=== PATIENT | female | born 1975 | race Caucasian/White ===

== ENCOUNTER 2017-04-10 22:57 | Inpatient (IN) | payer MEDICAID ==
[~2017-04-10] VITALS: Ht 160 cm; Wt 61.2 kg
--- NOTE | 2017-04-10 23:09 | NUR ---
PATIENT WALKED INTO ER C/O SUDDEN ONSET CP RADIATING TO LEFT ARM, PT IS ALERT, ORIENTED X 4, NO RESP DISTRESS NOTED OR REPORTED UPON ASSESSMENT... MD AT BEDSIDE..
[2017-04-10] MEDS ORDERED: ASPIRIN 325 MG TABLET ONE (23:44)
[2017-04-10] MEDS ORDERED: NITROGLYCERIN 0.4 MG/TAB BOTTLE SL ONE ×2 (23:44→23:45)
[2017-04-10] MEDS ORDERED: IV NORMAL SALINE 1000 ML BAG IV ONE (23:45)
[2017-04-10] MEDS ORDERED: ASPIRIN 325 MG TABLET PO ONE (23:45)
[2017-04-10 23:57] LABS: BASOPHILS % (AUTO) 0.4 % (0.0-2.0); EOSINOPHILS # (AUTO) 0.1 K/uL (0.0-0.7); EOSINOPHILS % (AUTO) 1.7 % (0.0-7.0); HEMATOCRIT 38.9 % (37-47); HEMOGLOBIN 12.6 G/DL (12.0-16.0); LYMPHOCYTES # (AUTO) 2.4 K/UL (0.8-4.8); LYMPHOCYTES % (AUTO) 30.3 % (20.5-51.5); MEAN CORPUSCULAR HEMOGLOBIN 26.6 UUG (27.0-31.0); MEAN CORPUSCULAR HGB CONC 33 g/dL (32.0-37.0); MEAN CORPUSCULAR VOLUME 81.8 FL (81.0-99.0); MONOCYTES # (AUTO) 0.8 K/UL (0.1-1.30); NEUTROPHILS # (AUTO) 4.8 K/UL (1.8-8.9); NEUTROPHILS % (AUTO) 57.6 % (38.5-71.5); PLATELET COUNT (AUTO) 145 K/UL (150-450); RED BLOOD CELL COUNT(AUTO) 4.75 MIL/UL (4.2-5.4); WHITE BLOOD COUNT (AUTO) 8.1 K/UL (4.0-11.2)
[2017-04-11 00:02] LABS: MAGNESIUM 1.8 mg/dL (1.8-2.4)
[2017-04-11 00:03] LABS: CREATININE 0.6 mg/dL (0.6-1.3); POTASSIUM 4.1 mmol/L (3.5-5.1)
[2017-04-11 00:20] LABS: BILIRUBIN,DIRECT 0.1 mg/dL (0.0-0.2); BILIRUBIN,TOTAL 0.3 mg/dL (0.2-1.0); TOTAL PROTEIN, SERUM 7.1 g/dL (6.4-8.2)
[2017-04-11 00:23] LABS: THYROID STIMULATING HORMONE < 0.007 mIU/mL (0.358-3.740)
[2017-04-11] MEDS ORDERED: NITROGLYCERIN OINT 1 GM PACKET TP ONE ×2 (00:36)
--- NOTE | 2017-04-11 00:55 | NUR ---
PER ERMD, CONTACTED EPIC FOR MD TO , SPRAY PILOT TO PAGE DR. Ava LYNN...
[2017-04-11 01:30] VITALS: BP 116/67
--- NOTE | 2017-04-11 01:37 | NUR ---
Pt. admitted to TELEMETRY , under care of Dr. LYNN, [place] completed, pt is alert, oriented x 4, no resp distress noted or reported upon transfer assessment... pt transferred via wheelchair...
--- NOTE | 2017-04-11 01:40 | NUR ---
ADMITTED PATIENT IN THE TELE UNIT UNDER THE CARE OF DR. CLEMENT. WAS NOTIFIED OF THE ADMISSION. ORIENT PATIENT TO THE ROOM, BATHROOM AND CALL LIGHTS.
[2017-04-11] MEDS ORDERED: ACETAMINOPHEN 325 MG TABLET PO PRN (02:30)
[2017-04-11 04:00] VITALS: BP 91/59
[2017-04-11] MEDS ORDERED: IV 1/2NS 1000 ML 1,000 ML IV PRN (05:15)
[2017-04-11] MEDS ORDERED: HYDROCODONE/APAP 5-325MG TABLET PO PRN (05:15)
[2017-04-11] MEDS ORDERED: ONDANSETRON 4 MG/2 ML VIAL IV PRN (05:15)
--- NOTE | 2017-04-11 06:46 | NUR ---
PATIENT ALERT AWAKE NO SOB NO CHEST PAIN, SINUS RYTHM 70, CONT TO MONITOR.
[2017-04-11] MEDS ORDERED: PANTOPRAZOLE SODIUM 40 MG TABLET.DR PO SCH (07:00)
[2017-04-11 07:11] LABS: THYROID STIMULATING HORMONE < 0.007 mIU/mL (0.358-3.740)
[2017-04-11 07:22] LABS: CHOLESTEROL 113 mg/dL (<200); HDL CHOLESTEROL 66 mg/dL (40-60); TRIGLYCERIDES 23 MG/DL (30-150)
--- NOTE | 2017-04-11 07:30 | NUR ---
RECEIVED PATIENT FROM STUDIO ASSISTANT. SAFETY CHECK, BED IN LOW POSITION, SIDE RAILS UP X2
[2017-04-11] MEDS ORDERED: METOPROLOL TARTRATE 25 MG TABLET PO SCH (09:00)
[2017-04-11] MEDS ORDERED: ASPIRIN 81 MG TAB.CHEW PO SCH (09:00)
[2017-04-11] MEDS: ACETAMINOPHEN 325 MG TABLET PO PRN ×2 (09:59→15:33)
[2017-04-11 11:58] VITALS: BP 106/65
--- NOTE | 2017-04-11 13:00 | NUR ---
PATIENT HAVING RECURRING HEADACHES, PAIN MEDICATION REQUESTED.
[2017-04-11 15:42] VITALS: BP 108/64
[2017-04-11] MEDS ORDERED: METO25TA6 PO (17:09)
[2017-04-11] MEDS ORDERED: ALPR0.255 PO (17:09)
--- NOTE | 2017-04-11 18:00 | NUR ---
DISCHARGE PER DR CLEMENT
== END 2017-04-11 18:11 | disposition home or self-care (01) | DRG 424 ==
LOC: ER 22:59 → TELE 04-11 01:16
PROVIDERS: ADMIT Internal Medicine; ATTEND Internal Medicine
DX: E05.90 Thyrotoxicosis, unspecified without thyrotoxic crisis or storm (principal); D69.6 Thrombocytopenia, unspecified; G89.29 Other chronic pain; Z83.49 Family history of other endocrine, nutritional and metabolic diseases; R01.1 Cardiac murmur, unspecified; M47.9 Spondylosis, unspecified; R63.4 Abnormal weight loss; Z68.23 Body mass index [BMI] 23.0-23.9, adult
CPT/HCPCS: 36415; 70030-TC; 71010; 83735; 84443; 84703; 85025; 85730; 93005

== ENCOUNTER 2017-11-21 20:15 | Emergency (ER) | payer MEDICAID ==
[~2017-11-21] VITALS: Ht 162.6 cm; Wt 59.0 kg
[~2017-11-21 20:15] MED LIST: ALPR0.255 PO; METO25TA6 PO
[2017-11-21] MEDS ORDERED: HYDROMORPHONE 1 MG/1 ML DISP.SYRIN IV ONE (22:00)
[2017-11-21] MEDS ORDERED: ONDANSETRON 4 MG/2 ML VIAL IV ONE (22:00)
[2017-11-21] MEDS ORDERED: IV NORMAL SALINE 1000 ML BAG IV ONE (22:00)
[2017-11-21 22:10] LABS: BASOPHILS % (AUTO) 0.2 % (0.0-2.0); EOSINOPHILS # (AUTO) 0.1 K/uL (0.0-0.7); EOSINOPHILS % (AUTO) 1.3 % (0.0-7.0); HEMATOCRIT 35.7 % (31.2-41.9); HEMOGLOBIN 11.9 g/dL (10.9-14.3); LYMPHOCYTES # (AUTO) 2.5 K/uL (20.0-40.0); LYMPHOCYTES % (AUTO) 32.2 % (20.5-51.5); MEAN CORPUSCULAR HEMOGLOBIN 26.7 uug (24.7-32.8); MEAN CORPUSCULAR HGB CONC 33 g/dL (32.3-35.6); MEAN CORPUSCULAR VOLUME 80.2 fL (75.5-95.3); MONOCYTES # (AUTO) 0.9 K/uL (2.0-10.0); MONOCYTES % (AUTO) 11.7 % (0.0-11.0); NEUTROPHILS # (AUTO) 4.2 K/uL (1.8-8.9); NEUTROPHILS % (AUTO) 54.6 % (38.5-71.5); PLATELET COUNT (AUTO) 122 K/uL (179-408); RED BLOOD CELL COUNT(AUTO) 4.45 MIL/uL (3.63-4.92); WHITE BLOOD COUNT (AUTO) 7.7 K/uL (3.8-11.8)
[2017-11-21 22:16] LABS: CREATININE 0.7 mg/dL (0.6-1.3); POTASSIUM 3.9 mmol/L (3.5-5.1)
[2017-11-21 22:20] LABS: *BILIRUBIN,URIN NEGATIVE (NEGATIVE); *BLOOD, URINE NEGATIVE (NEGATIVE); *CLARITY,URINE CLEAR (CLEAR); *COLOR,URINE YELLOW (YELLOW); *KETONES,URINE NEGATIVE (NEGATIVE); *PROTEIN,URINE TRACE (NEGATIVE); *URINE HCG, QUAL NEGATIVE (NEGATIVE); *UROBILINOGEN,URINE 0.2 E.U./dl (NORMAL); LEUKOCYTE ESTERASE ,URINE NEGATIVE (NEGATIVE); NITRITE, URINE NEGATIVE (NEGATIVE); PH,URINE 7.5 (5.0-8.0); UGLUCOSE NEGATIVE (NEGATIVE)
[2017-11-21 22:22] LABS: BILIRUBIN,DIRECT 0.1 mg/dL (0.0-0.2); BILIRUBIN,TOTAL 0.3 mg/dL (0.2-1.0); TOTAL PROTEIN, SERUM 6.8 g/dL (6.4-8.2)
[2017-11-21 22:27] LABS: BACTERIA,URINE FEW /HPF (NONE SEEN); MUCUS,URINE FEW /LPF (0-FEW); RBC,URINE 0-3 /HPF (0-3); SQUAMOUS EPITHELIAL CELL,UR MODERATE /HPF (NONE SEEN); WBC,URINE 0-3 /HPF (0-3)
[2017-11-21] MEDS ORDERED: ONDANSETRON 4 MG/2 ML VIAL ONE (22:48)
[2017-11-21] MEDS ORDERED: HYDROMORPHONE 1 MG/1 ML DISP.SYRIN ONE (22:48)
--- NOTE | 2017-11-22 00:05 | NUR ---
Removed IV intact, site okay, bandaged. Gave pt RX and d/c instructions, verbalized understanding.
== END 2017-11-22 00:10 | disposition home or self-care (01) ==
LOC: ER 20:17
DX: R10.31 Right lower quadrant pain (principal); R10.32 Left lower quadrant pain
CPT/HCPCS: 36415; 71045; 83690; 84703; 85025; 85730; 87086; A4663; J1170; J2405; J7030

== ENCOUNTER 2017-12-11 11:00 | Emergency (ER) | payer MEDICAID ==
[~2017-12-11] VITALS: Ht 165.1 cm; Wt 62.1 kg
[2017-12-11] MEDS ORDERED: DEXAMETHASONE 4 MG TABLET PO ONE (11:30)
--- NOTE | 2017-12-11 11:35 | NUR ---
PATIENT WAS SEEN BY MD. MEDICINE GIVEN ORDERED. DC, RX AND FOLLOW UP INSTRUCTIONS GIVEN AND EXPLAINED TO PATIENT WHO STATES SHE UNDERSTANDS ALL INSTRUCTIONS.
[2017-12-11] MEDS ORDERED: DEXAMETHASONE 4 MG TABLET ONE (11:40)
== END 2017-12-11 11:38 | disposition home or self-care (01) ==
LOC: ER 11:00
DX: J02.9 Acute pharyngitis, unspecified (principal)
CPT/HCPCS: A4663; J8540

== ENCOUNTER 2019-07-21 19:48 | Emergency (ER) | payer MEDICAID ==
[~2019-07-21] VITALS: Ht 162.6 cm; Wt 68.0 kg
--- NOTE | 2019-07-21 20:00 | NUR ---
Patient ambulated with stable gait. A/Ox4. Patient came for c/o left hand/wrist sprain from a trip and fall accident that occurred yesterday. Pulses palpable, patient is able to feel tactile stimuli, but limited in range of motion.
--- NOTE | 2019-07-21 20:15 | NUR ---
ERMD at bedside for MSE
--- NOTE | 2019-07-21 20:37 | NUR ---
XRAY at bedside for images
[2019-07-21] MEDS: HYDROCODONE/APAP 5-325MG TABLET PO ONE ×2 (20:46→20:51)
[2019-07-21] MEDS ORDERED: HYDROCODONE/APAP 5-325MG TABLET ONE (20:49)
--- NOTE | 2019-07-21 20:51 | NUR ---
Patient refused [place] 5mg, ERMD made aware.
--- NOTE | 2019-07-21 21:15 | NUR ---
+WRIST PULSES PRESENT B/L, +CAPILLARY REFILL B/L, INTACT SKIN ORTHO GLASS SPLINT APPLIED INSTRUCTED WRAPPED BY EDITH BANDAGES PT ABLE TO TOLERATE
--- NOTE | 2019-07-21 21:49 | NUR ---
Patient discharged to home in stable conditon. Written and verbal after care instructions given. Patient verbalizes understanding of instructions. Patient ambulated with stable gait. CMS intact. Denies any acute discomfort.
[2019-07-21 21:50] VITALS: BP 110/79
== END 2019-07-21 21:51 | disposition home or self-care (01) ==
LOC: ER 19:48
DX: S62.102A Fracture of unspecified carpal bone, left wrist, initial encounter for closed fracture (principal); Z79.899 Other long term (current) drug therapy; W18.39XA Other fall on same level, initial encounter; Y93.89 Activity, other specified; Y92.89 Other specified places as the place of occurrence of the external cause; Y99.8 Other external cause status
CPT/HCPCS: 73110; 73130; A4663

== ENCOUNTER 2021-03-27 11:56 | Emergency (ER) | payer MEDICAID ==
[~2021-03-27] VITALS: Ht 162.6 cm; Wt 67.1 kg
[2021-03-27] MEDS ORDERED: ACETAMINOPHEN 325 MG TABLET PO ONE (12:15)
[2021-03-27] MEDS ORDERED: LIDOCAINE 5% PATCH TD ONE ×2 (12:15→12:29)
[2021-03-27] MEDS ORDERED: ACETAMINOPHEN ES 500 MG TABLET ONE (12:21)
--- NOTE | 2021-03-27 12:30 | NUR ---
appliance repair technician at bedside. Pt is able to change into hospital gown. with stable but antalgic gait. c/o LEFT knee pain. Pt able to tolerate PO pain meds and Lidocaine Patch monitored accordingly NAD VSS RA
[2021-03-27] MEDS ORDERED: BACL10TA PO (12:46)
[2021-03-27] MEDS ORDERED: ACET-2154 PO (12:46)
--- NOTE | 2021-03-27 12:56 | NUR ---
Pt able to tolerate burke wraps. refused crutches at this time. Pt aware of risks and benefits. Patient discharged to home in stable condition. Written and verbal after care instructions given. Patient verbalizes understanding of instructions. Stressed follow up or return to ER for worsening s/s.
[2021-03-27 12:57] VITALS: BP 127/78
== END 2021-03-27 13:00 | disposition home or self-care (01) ==
LOC: ER 11:56
DX: S83.92XA Sprain of unspecified site of left knee, initial encounter (principal); S93.402A Sprain of unspecified ligament of left ankle, initial encounter; S29.012A Strain of muscle and tendon of back wall of thorax, initial encounter; M23.92 Unspecified internal derangement of left knee; W10.9XXA Fall (on) (from) unspecified stairs and steps, initial encounter; Y93.39 Activity, other involving climbing, rappelling and jumping off; Y92.89 Other specified places as the place of occurrence of the external cause; M25.552 Pain in left hip; Z86.16 Personal history of COVID-19; E03.9 Hypothyroidism, unspecified
CPT/HCPCS: 73502; 73600; A4663; A9150

== ENCOUNTER 2022-05-04 20:12 | Emergency (ER) | payer MEDICAID ==
[~2022-05-04] VITALS: Ht 165.1 cm; Wt 64.9 kg
[~2022-05-04 20:12] MED LIST changes: +ACET-2154 PO; +BACL10TA PO
--- NOTE | 2022-05-04 20:50 | NUR ---
Dr Morrison in room MSE in progress
[2022-05-04 20:55] LABS: HEMATOCRIT 39.5 % (31.2-41.9); MEAN CORPUSCULAR HEMOGLOBIN 28.7 uug (24.7-32.8); MEAN CORPUSCULAR VOLUME 85.6 fL (75.5-95.3); PLATELET COUNT (AUTO) 173 K/uL (179-408)
--- NOTE | 2022-05-04 20:55 | NUR ---
PATIENT IS A/OX4, NAD NOTED. PATIENT IS ABLE TO WALK WITH STEADY GAIT
[2022-05-04] MEDS ORDERED: KETOROLAC TROMETHAMINE 60 MG INJ IM ONE ×2 (21:28→21:30)
[2022-05-04 21:56] LABS: ALANINE AMINOTRANSFERASE 20 U/L (14-59); ALKALINE PHOSPHATASE 71 U/L (50-136); ASPARTATE AMINOTRANSFERASE 12 U/L (15-37); BILIRUBIN,DIRECT 0.1 mg/dL (0.0-0.2); BILIRUBIN,TOTAL 0.5 mg/dL (0.2-1.0); CARBON DIOXIDE 27 mmol/L (21-32); CHLORIDE 103 mmol/L (98-107); CREATININE 0.6 mg/dL (0.6-1.3); GLUCOSE 88 mg/dL (74-106); LIPASE 116 U/L (73-393); POTASSIUM 4.2 mmol/L (3.5-5.1); TOTAL PROTEIN, SERUM 7.6 g/dL (6.4-8.2); UREA NITROGEN, BLOOD 13 mg/dL (7-18)
[2022-05-04 21:57] LABS: *BILIRUBIN,URIN NEGATIVE (NEGATIVE); *BLOOD, URINE NEGATIVE (NEGATIVE); *CLARITY,URINE CLEAR (CLEAR); *COLOR,URINE YELLOW (YELLOW); *KETONES,URINE NEGATIVE (NEGATIVE); *UROBILINOGEN,URINE 0.2 E.U./dl (NORMAL); LEUKOCYTE ESTERASE ,URINE NEGATIVE (NEGATIVE); NITRITE, URINE NEGATIVE (NEGATIVE); UGLUCOSE NEGATIVE (NEGATIVE)
[2022-05-05] MEDS ORDERED: IBUP-1955 PO (00:17)
--- NOTE | 2022-05-05 00:24 | NUR ---
Patient discharged to home in stable condition. Written and verbal after care instructions given. Patient verbalizes understanding of instructions. Stressed follow up or return to ER for worsening s/s. Patient is A/ox4, NAD noted. Patient is able to walk with steady gait
[2022-05-05 00:25] VITALS: BP 127/68
== END 2022-05-05 00:25 | disposition home or self-care (01) ==
LOC: ER 20:15
DX: R10.32 Left lower quadrant pain (principal); E03.9 Hypothyroidism, unspecified
CPT/HCPCS: 36415; 76856; 80048; 80076; 81003; 83690; 84702; 85025; 96372; 99284; J1885; A4663